=== PATIENT | female | born 1950 | race Caucasian/White ===

== ENCOUNTER → 2017-03-28 | Day surgery (SDC) | payer MEDICARE, OTHER ==
[~2017-03-28] MED LIST: Lactated Ringers 1,000 ML IV SCH; Propofol 200 MG/20 ML SDV IV ONE
[2017-03-28 11:23] VITALS: BP 170/69
--- NOTE | 2017-03-31 07:07 | OR ---
DATE OF OPERATION: 03/28/2017 PREOPERATIVE DIAGNOSIS: SCREENING COLONOSCOPY. POSTOPERATIVE DIAGNOSIS: SCREENING COLONOSCOPY. SURGEON: Kaushik Turcios MD PROCEDURE: FULL-LENGTH COLONOSCOPY WITH POLYP REMOVAL X1. 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 COMPLICATIONS: None. SPECIMEN: Tubular adenoma, rectal vault. FINDINGS: 1. Full-length colonoscopy. 2. Minimal sigmoid diverticulosis. 3. Tubular adenoma, rectal vault, less than a 0.5 cm. RECOMMENDATIONS: Followup colonoscopy in 5 years. INDICATIONS: The patient was well over 10 years since her last colonoscopy. James Chavez recommended a screening procedure. DESCRIPTION OF PROCEDURE: The patient was prepped and draped, placed in a left lateral decubitus position. A lubricated Olympus colonoscope was inserted and easily advanced to the cecum. Direct visualization of ileocecal valve and appendiceal orifice was difficult due to stool present in the cecum, but on palpation scope appeared to be present at the cecal pouch. Upon withdrawal, prep was poor in a few areas, mostly in the right colon, but no obvious abnormalities were seen throughout the ascending, transverse or descending areas. The patient had a few scattered diverticula in the sigmoid colon very minimal. There were no polyps, masses, ulcerations, or bleeding sites. No vascular abnormalities or signs of colitis. The patient in the rectal vault had one small flat tubular adenoma/hyperplastic polyp removed in its entirety with three cold forceps biopsies without complication. Retroflexion showed no perianal lesions. Air was then suctioned. Scope removed without complication. NIK/ROSAURA /[id number]
== END ==
LOC: CC.SDS 09:33
PROVIDERS: ATTEND Family Medicine
DX: Z12.11 Encounter for screening for malignant neoplasm of colon (principal); D12.8 Benign neoplasm of rectum; K57.30 Diverticulosis of large intestine without perforation or abscess without bleeding; I10 Essential (primary) hypertension; E55.9 Vitamin D deficiency, unspecified; Z79.899 Other long term (current) drug therapy; Z98.84 Bariatric surgery status; Z98.890 Other specified postprocedural states; Z98.51 Tubal ligation status; Z87.891 Personal history of nicotine dependence; F31.9 Bipolar disorder, unspecified
CPT/HCPCS: 45380; J7120; 00810; 88305; J2704

== ENCOUNTER → 2018-12-28 | Day surgery (SDC) | payer MEDICARE ==
[~2018-12-28] MED LIST changes: -Lactated Ringers 1,000 ML IV SCH; +Lidocaine 1% 20 ML MDV ONE; -Propofol 200 MG/20 ML SDV IV ONE
[2018-12-28 15:15] VITALS: BP 155/76
--- NOTE | 2018-12-29 12:47 | OR ---
DATE OF OPERATION: 12/28/2018 PREOPERATIVE DIAGNOSIS: DOCUMENTED SAPHENOFEMORAL INSUFFICIENCY WITH PAINFUL VARICOSITIES. POSTOPERATIVE DIAGNOSIS: DOCUMENTED SAPHENOFEMORAL INSUFFICIENCY WITH PAINFUL VARICOSITIES. SURGEON: Kaushik Turcios MD PROCEDURE: KELSY, RIGHT GSV. COMPLICATIONS: None. SPECIMEN: None. FINDINGS: Successful KELSY, right GSV. INDICATIONS: The patient has documented venous insufficiency of her right lower extremity. She is having symptomatic painful varicosities. We elected to proceed with endovenous ablation. DESCRIPTION OF PROCEDURE: The patient was brought to the operating room suite and the insufficient saphenous vein mapped and diagrammed on the overlying skin via ultrasound. The patient was placed supine on the operating room table and the entire limb was prepped and draped in sterile fashion. She was placed in reverse Trendelenburg position. Local anesthesia was instilled at the access site in the medial thigh just above the knee. The vein was accessed using ultrasound guidance and Seldinger technique with a guidewire introduced through the needle which was then exchanged over the guidewire for a 6-Thai sheath after a small incision was made with an 11 blade scalpel. A sheath was held in place by skin tension. Guidewire was removed and the sheath was flushed. The probe was placed into the branch of the saphenous vein as it was a split saphenous vein and we elected to go through the larger more superficial vein and get into the deeper saphenous vein approximately 10 cm from the junction and the catheter was advanced approximately 2 cm away from the saphenofemoral junction under ultrasound guidance. Once probe position was verified via ultrasound, tumescent anesthesia was infiltrated into the perivenous compartment along the length of the vein from the entry site to the saphenofemoral junction until a halo effect was achieved around the entire vein. The patient was placed back in Trendelenburg position to exsanguinate the superficial system. Once probe position again confirmed via ultrasound and with direct external compression along the length of the heating element, radiofrequency energy was applied. The vein was segmentally ablated heating a 7 cm segment and indexing the catheter forward 6.5 cm until treatment length complete. Device temperature was maintained at 120 degrees Celsius with an initial power level of 40 kelsey, dropping to below 20 for each treatment. Total radiofrequency treatment time was a minute and 20 seconds with 4 radiofrequency cycles used and a total of 450 mL of tumescent. Repeat ultrasound confirmed successful treatment. The catheter and sheath were withdrawn and hemostasis achieved with direct pressure. The skin incision was closed with a bandage and the entire right lower extremity was wrapped from the level of the foot to the groin with a compression wrap. The patient was stable in the recovery room. QIANA /[id number]
== END ==
LOC: CC.SDS 10:21
PROVIDERS: ATTEND Family Medicine
DX: I83.811 Varicose veins of right lower extremity with pain (principal); I87.2 Venous insufficiency (chronic) (peripheral)
CPT/HCPCS: A4216

== ENCOUNTER → 2019-01-07 | Day surgery (SDC) | payer MEDICARE, OTHER ==
[2019-01-07 16:50] VITALS: BP 132/66
--- NOTE | 2019-01-07 23:00 | OR ---
DATE OF OPERATION: 01/07/2019 PREOPERATIVE DIAGNOSIS: VENOUS INSUFFICIENCY WITH PAINFUL VARICOSITIES. POSTOPERATIVE DIAGNOSIS: VENOUS INSUFFICIENCY WITH PAINFUL VARICOSITIES. SURGEON: Kaushik Turcios MD PROCEDURE: KELSY OF LEFT GSV. ANESTHESIA: Local with tumescent anesthesia. COMPLICATIONS: None. SPECIMEN: None. FINDINGS: Successful KELSY of the left GSV. INDICATIONS: Patient has documented saphenofemoral insufficiency and painful varicose veins. She would like to proceed with endovenous ablation. DESCRIPTION OF PROCEDURE: The patient was brought to operating room suite. The insufficient saphenous vein was mapped in the left lower extremity via ultrasound and diagrammed along the overlying skin along with the depth and diameter of the vein to be treated. The entire limb was prepped and draped in sterile fashion. The patient was placed in reverse Trendelenburg position. Local anesthesia of 1% lidocaine was instilled at the access site. The vein was accessed using ultrasound guidance and Seldinger technique with a guidewire introduced through the needle. The needle was removed. A small #11 blade incision was made and sheath was placed over the guidewire into the vein without complication. Guidewire was removed. The sheath was flushed. Radiofrequency probe was then placed through the sheath and positioned approximately 1.8 cm distal to the saphenofemoral junction via ultrasound guidance. Once probe position was verified via ultrasound, tumescent anesthesia was infiltrated into the perivenous compartment achieving a halo effect around the entire vein. The patient was placed back in Trendelenburg position to exsanguinate the superficial venous system. Once probe position again confirmed via ultrasound and with direct external compression along the length of the heating element, radiofrequency energy was applied. The vein was segmentally ablated, heating a 7 cm segment and indexing the catheter forward 6.5 cm until treatment length complete. Device temperature was maintained at 120 degrees Celsius with an initial power level of 40 kelsey, dropping to below 20 for each treatment. Total radiofrequency time was 1 minute and 40 seconds with 5 radiofrequency cycles. A total 500 mL of tumescent anesthesia was used. The repeat ultrasound of the vein confirmed successful treatment. The catheter and sheath were withdrawn and hemostasis achieved with direct pressure. The skin incision was closed with a bandage and a compression wrap was placed from the level of the foot to the groin. Patient was stable in the recovery room. NIK/ROSAURA /[id number]
== END ==
LOC: CC.SDS 10:18
PROVIDERS: ATTEND Family Medicine
DX: I87.2 Venous insufficiency (chronic) (peripheral) (principal); I83.812 Varicose veins of left lower extremity with pain